=== PATIENT | male | born 2000 | race Two or more races ===

== ENCOUNTER 2024-07-28 22:20 | Emergency (ER) | payer BC, SELFPAY ==
[2024-07-28 22:21] VITALS: BMI 25.8
[2024-07-28 22:25] VITALS: BP 150/90; PULSE 83; RESP 18; TEMP 36.8; O2SAT 98
--- NOTE | 2024-07-28 22:38 | PD.EDABDPN ---
ED Abdominal Pain RME/HPI General Chief Complaint: Urogenital-Male Stated complaint: Possible Hemorrhoid Time seen by provider: 07/28/24 22:29 Arrival date/time: 07/28/24 22:20 RME / HPI RME / HPI narrative: This section includes all my notes and documentations, including HPI, PE, and ED course. Jeffry Torres MD HPI: 24-year-old male here with a couple week history of rectal pain, worse in the past few days. Occasional bright red blood with stools. Reports chronic constipation. No abdominal pain. No nausea or vomiting. No other complaints. ROS: All negative except as documented in HPI. Physical Exam: General: Alert and oriented. No acute distress when remaining still. Eyes: Conjunctivae and lids clear. ENT: No nasal congestion. Neck: Supple. Heart: RRR. Lungs: No respiratory distress. Good air movement. No rhonchi, wheezing, rales. Abdomen: Soft and nontender. Normal bowel sounds. No distension. No rebound or guarding. Back: No CVA tenderness. Skin: Warm and dry. Neuro: Alert and oriented X 3. Rectal: External hemorrhoids noted, varying in size and shape, not thrombosed. Make clinical diagnosis of hemorrhoids. Recommended a trial of conservative treatment. Based on my best medical judgment, made decision no further evaluation or treatment indicated at this time. Patient understands and agrees to the discharge instructions customized and printed, see below. Discharge instructions from Dr. Torres: ?After evaluation, your symptoms are due to hemorrhoids.? See attached handout. ?Use Anusol suppositories as prescribed to help heal your hemorrhoids. Topical lidocaine for pain as needed. ?During bowel movements, avoid pushing too hard which can cause hemorrhoids. ?To help prevent hard stools, increase oral fluid and maintain clear urine (if dark or yellow, increase oral fluid).? And increase every day exercising and eating fresh fruits and fresh vegetables. ?Sitz bath in warm water and Epsom salt for 15 minute 2 or 3 times daily until your hemorrhoids resolve. ?See a private doctor next week for recheck and further care. To make sure there is no serious intra-abdominal condition, ask for help with more investigation not available here in the ER. Such as EGD or scoping the stomach, colonoscopy or scoping the colon, and referral to see survey workers supervisor. ?Seek immediate medical care with worsening or with any concerns. Jeffry Torres MD Related Data Previous Rx's ?Medication ?Instructions ?Recorded hydrocortisone acetate 25 mg 25 mg FL BID 14 days #28 ea 07/28/24 rectal suppository (Anusol-HC) lidocaine 5 % topical ointment 1 applic topical QID PRN pain #30 07/28/24 grams Allergies Allergy/AdvReac Type Severity Reaction Status Date / Time Penicillins Allergy Intermediate Rash Verified 12/19/16 21:57 Course Quality Measures none Orders Category Date Time Status Lidocaine/Prilocaine Cr 5Gm [Emla Cr] Med 07/28/24 23:26 Discontinued See Dose Instructions TOP X1 ONE Vital Signs Vital signs: Vital Signs Temperature 98.2 F 07/28/24 22:25 Pulse Rate 83 07/28/24 22:25 Respiratory Rate 18 07/28/24 22:25 Blood Pressure 150/90 H 07/28/24 22:25 Pulse Oximetry (%) 98 07/28/24 22:25 Oxygen Delivery Method Room Air 07/28/24 22:25 Abdominal Pain MDM Patient data External records reviewed:: None Clinical information provided by:: patient Social determinants that could affect healthcare access:: none Patient has the following chronic illnesses:: None How is presenting disease/condition affected by chronic disease/condition?: no chronic disease Evaluation data The following diagnostics were reviewed and interpreted by me:: other (specify) (No diagnostics ordered.) Lab and/or radiology exams considered but not ordered:: None Interpretation Summary: No diagnostics ordered. Medications / Prescriptions Medications or Prescriptions considered but not ordered:: None Medication administrations:: Medication Administration History Discontinued Medications Lidocaine/Prilocaine (Lidocaine/Prilocaine Cr 5gm 5 Gm Tube) 0 gm TOP X1 ONE Stop: 07/28/24 23:27 Topical lidocaine for pain. Consultations Consultation(s) initiated? (list below): No Diagnosis Differential diagnosis abdominal pain: other (External hemorrhoids, internal hemorrhoids, anal fissures, thrombosed hemorrhoids) Most likely diagnosis given after review of the tests above:: External hemorrhoids Admission Indicated Admission indicated?: not indicated Explain why admission is indicated or not indicated:: There was no indication for admission. Admission Request Was there a request for admission?: No Disposition Plan Disposition Plan: Discharge Discharge Attestation Discharge Attestation: The patient and all family members were given an opportunity to ask questions and understood the discharge instructions. Discharge instructions specifically effects, indications for sooner follow up or return to the emergency department, and the expected course of current diagnosis. Patient condition: Stable Discharge Plan Plan Patient Disposition: HOME (Self Care) Prescriptions/Referrals Prescriptions/Med Rec: New hydrocortisone acetate [Anusol-HC] 25 mg suppository 25 mg FL BID 14 Days Qty: 28 0RF lidocaine 5 % ointment 1 applic topical QID PRN (Reason: pain) Qty: 30 0RF Referrals: No Primary/Family,Physician [Primary Care Provider] - In 1 week Problem List Clinical Impression: Hemorrhoids Patient/Caregiver Discharge Instructions Discharge Activity: activity as tolerated Education Materials: ED Hemorrhoids Additional Instructions: Discharge instructions from Dr. Torres: ?After evaluation, your symptoms are due to hemorrhoids.? See attached handout. ?Use Anusol suppositories as prescribed to help heal your hemorrhoids. Topical lidocaine for pain as needed. ?During bowel movements, avoid pushing too hard which can cause hemorrhoids. ?To help prevent hard stools, increase oral fluid and maintain clear urine (if dark or yellow, increase oral fluid).? And increase every day exercising and eating fresh fruits and fresh vegetables. ?Sitz bath in warm water and Epsom salt for 15 minute 2 or 3 times daily until your hemorrhoids resolve. ?See a private doctor next week for recheck and further care. To make sure there is no serious intra-abdominal condition, ask for help with more investigation not available here in the ER. Such as EGD or scoping the stomach, colonoscopy or scoping the colon, and referral to see survey workers supervisor. ?Seek immediate medical care with worsening or with any concerns. Print Language: Barbadian Stand Alone Forms: [facility] Award Info., Patient Portal Info Letter
[2024-07-28] MEDS: LIDOCAINE/PRILOCAINE CR 5GM 5 GM TUBE TOP (23:39)
== END 2024-07-28 23:41 | disposition home or self-care (01) ==
PROVIDERS: Emergency Provider Emergency Medicine
DX: K64.4 Residual hemorrhoidal skin tags (principal)
CPT/HCPCS: 99281